=== PATIENT | female | born 1935 | race Caucasian/White ===

== ENCOUNTER 2018-05-05 10:51 | Emergency (ER) | payer MEDICARE ==
[~2018-05-05] VITALS: Ht 152.4 cm; Wt 61.2 kg
[~2018-05-05 10:51] MED LIST: DIFLUCAN150 MG PO; GABAPENTIN100 M2 PO; LEVOFLOXACIN500 MG PO; MEDROL DOSEPAK4 MG PO; NYSTOP60 GM T; ROPINIROLE HYDRO1 MG PO; TYLENOL325 M1 PO; VITABESE1 CAP PO; VITAMIN D32000 UNI1 PO
[2018-05-05 11:33] LABS: BASO % 0.3 % (0.0-1.0); HEMATOCRIT 45.1 % (37.0-47.0); HEMOGLOBIN 15.5 g/dl (12.0-16.0); LYMPH # 1.2 10*3/uL (1.3-4.4); LYMPH % 7.9 % (27.0-41.0); MEAN CELL VOLUME 98.7 fl (81.0-99.0); MEAN CORPUSCULAR HGB 33.9 pg (27.0-31.0); MEAN CORPUSCULAR HGB CONC 34.4 g/dl (33.0-37.0); MEAN PLATELET VOLUME 9.7 fl (9.6-12.3); MONO # 0.8 10*3/uL (0.1-1.0); MONO % 5.3 % (3.0-9.0); NEUT # 12.6 10*3/uL (2.3-7.9); NEUT % 86.2 % (47.0-73.0); PLATELET COUNT AUTOMATED 166 10*3/uL (130-400); RED BLOOD COUNT 4.57 10*6/uL (4.10-5.10); RED CELL DISTRI WIDTH 12.3 % (0-14.5); WHITE BLOOD COUNT 14.6 10*3/uL (4.8-10.8)
[2018-05-05 11:58] LABS: ALBUMIN 3.7 gm/dl (3.1-4.5); ALKALINE PHOSPHATASE 74 U/L (45-117); BUN 25 mg/dl (7-24); CHLORIDE 105 mmol/L (98-107); CREATININE 0.54 mg/dL (0.55-1.02); POTASSIUM 3.6 mmol/L (3.5-5.1); SGOT/AST 31 IU/L (3-35); SGPT/ALT 45 U/L (12-78); SODIUM 141 mmol/L (136-145); TOTAL PROTEIN 7.2 gm/dL (6.4-8.2)
[2018-05-05 12:04] LABS: BILIRUBIN NEGATIVE (NEGATIVE); BLOOD NEGATIVE (NEGATIVE); CLARITY SL CLOUDY (CLEAR); COLOR YELLOW (YELLOW); GLUCOSE NEGATIVE (NEGATIVE); KETONE NEGATIVE (NEGATIVE); LEUKO ESTERASE NEGATIVE (NEGATIVE); NITRITE NEGATIVE (NEGATIVE); PH 5.5 (5.0-9.0); SPECIFIC GRAVITY >= 1.030 (1.005-1.030); UROBILINOGEN 0.2 E.U./dl (0.2-1.0)
[2018-05-05 12:15] LABS: BACTERIA 2+; EPITHELIAL CELLS 21-30; MUCOUS TRACE
[2018-05-05] MEDS ORDERED: NORCO 5-325 TA1 EACH PO (17:44)
== END 2018-05-05 15:33 ==
LOC: ED 10:51
PROVIDERS: Emergency Medicine
DX: G89.29 Other chronic pain (principal); M79.10 Myalgia, unspecified site; R11.10 Vomiting, unspecified; R53.1 Weakness; R10.84 Generalized abdominal pain; G62.9 Polyneuropathy, unspecified; Z88.8 Allergy status to other drugs, medicaments and biological substances; Z79.899 Other long term (current) drug therapy